=== PATIENT | female | born 1990 | race Caucasian/White ===

== ENCOUNTER 2020-01-25 06:48 | Inpatient (IN) | payer MEDICARE, OTHER ==
[2020-01-25] VITALS (14 sets, daily range): BP systolic 81–112; BP diastolic 48–61
[2020-01-25] MEDS ORDERED: NS 1,000 ML IV SCH (08:03)
[2020-01-25] MEDS ORDERED: ATOR1TAB19 PO (08:32)
[2020-01-25] MEDS ORDERED: ESCI10TA2 PO (08:32)
[2020-01-25] MEDS ORDERED: LISI2.5T2 PO (08:32)
[2020-01-25] MEDS ORDERED: LEVO75TA4 PO (08:32)
[2020-01-25 08:39] LABS: BASO % 0.2 % (0.0-1.0); HEMATOCRIT 36.2 % (36.0-47.0); HEMOGLOBIN 11.8 g/dl (12.0-15.5); LYMPH # 1.3 10^3/uL (1.5-5.0); LYMPH % 6.4 % (24.0-44.0); MEAN CORPUSCULAR HEMOGLOBIN 30.6 pg (27.0-33.0); MEAN CORPUSCULAR HGB CONC 32.6 g/dl (32.0-36.5); MEAN CORPUSCULAR VOLUME 93.8 fl (80.0-96.0); MONO # 0.6 10^3/uL (0.0-0.8); MONO % 3.3 % (0.0-5.0); NEUTROPHILS # 17.6 10^3/uL (1.5-8.5); NEUTROPHILS % 89.3 % (36.0-66.0); PLATELET COUNT, AUTOMATED 333 10^3/uL (150-450); RED BLOOD COUNT 3.86 10^6/uL (4.00-5.40); WHITE BLOOD COUNT 19.7 10^3/uL (4.0-10.0)
[2020-01-25] MEDS: INSULIN IV RATE CHANGE DOCUMENTATION ML/HR XX SCH ×5 (08:49→14:19)
[2020-01-25] MEDS ORDERED: INSULIN HUMAN REGULAR 100 UNITS in NS 99 ML IV SCH ×4 (09:00)
[2020-01-25] MEDS ORDERED: GLUCOSE 4GM CHEW TABLET PO PRN ×2 (09:00→13:45)
[2020-01-25] MEDS ORDERED: DEXTROSE 50% 50 ML SYRINGE IV PRN ×2 (09:00→13:45)
[2020-01-25] MEDS ORDERED: GLUCAGON INJ 1MG VIAL SC PRN ×2 (09:00→13:45)
[2020-01-25] MEDS ORDERED: PANTOPRAZOLE 40MG VIAL (C9113 PER 1) IV SCH (09:00)
[2020-01-25 09:08] LABS: CALCIUM LEVEL 7.9 MG/DL (8.5-10.1); CREATININE FOR GFR 1.18 MG/DL (0.55-1.30); GLOMERULAR FILTRATION RATE 56.9 (>60); POTASSIUM SERUM 3.6 MEQ/L (3.5-5.1)
[2020-01-25] MEDS ORDERED: HUMA100I5 SQ (09:08)
[2020-01-25] MEDS ORDERED: BASA100I SC (09:08)
[2020-01-25] MEDS ORDERED: BASA100I SQ (09:08)
[2020-01-25] MEDS ORDERED: ACET-907 PO (09:09)
[2020-01-25 09:12] LABS: ABG BASE EXCESS -10.8 (-2.0-2.0); ABG O2 SATURATION 98.4 % (95.0-99.0); ABG PARTIAL PRESSURE CO2 24.1 mmHg (35.0-45.0); ABG PARTIAL PRESSURE O2 113.8 mmHg (75.0-100.0); ABG STANDARD HCO3 15.9 MEQ/L (22.0-26.0); ABG TOTAL CO2 13.8 MEQ/L (22.0-29.0); ABG pH (ARTERIAL) 7.351 UNITS (7.350-7.450)
--- NOTE | 2020-01-25 09:58 | HPEPDOC ---
General Date of Admission Jan 25, 2020 at 07:59 Date of Service: Jan 25, 2020 Chief Complaint The patient is a 29-year-old female admitted with a reason for visit of DKA. History of Present Illness 29 year old female PMHx IDDM presents with nausea and vomiting. History obtained from patients chart, symptoms started two weeks ago with vomiting with blood in emesis, she started taking an OTC medication for reflux which helped to improve her symptoms. 1 day prior to admission the nausea and vomiting began again. Initially presenting to [facility] where patient found to be in DKA, subsequently transferred to [facility] for inpatient management, no further episodes of vomiting noted. Currently being managed in MICU, insulin drip/IVF. Home Medications Scheduled Atorvastatin Calcium (Atorvastatin Calcium) 10 Mg Tablet, 10 MG PO DAILY, (Reported) Escitalopram Oxalate (Escitalopram Oxalate) 10 Mg Tablet, 10 MG PO DAILY, (Reported) Insulin Glargine,Hum.rec.anlog (Basaglar Kwikpen U-100) 100 Unit/1 Ml Insuln.pen, 25 UNITS SQ QAM, (Reported) Insulin Glargine,Hum.rec.anlog (Basaglar Kwikpen U-100) 100 Unit/1 Ml Insuln.pen, 5 UNIT SC QHS, (Reported) Insulin Lispro (Humalog Kwikpen U-100) 100 Unit/1 Ml Insuln.pen, 1 DOSE SQ AC, (Reported) PER SLIDING SCALE Levothyroxine Sodium (Levothyroxine Sodium) 75 Mcg Tablet, 75 MG PO DAILY, (Reported) Pantoprazole Sodium (Pantoprazole Sodium) 40 Mg Tablet.dr, 40 MG PO DAILY Sucralfate (Carafate) 1 Gm Tablet, 1 TAB PO QID Scheduled PRN Acetaminophen (Tylenol) 325 Mg Tablet, 650 MG PO TID PRN for PAIN / FEVER, (Reported) Allergies Coded Allergies: No Known Allergies (Unverified , 01/25/20) Past Medical History Medical History IDDM A-FIB/CHADSVASC A-FIB History Current/History of A-Fib/PAF?: No Review of Systems Constitutional: Reports: Weakness, Fatigue Eyes: Denies: Pain, Vision change ENT: Reports: Sore Throat; Denies: Head Aches, Ear Pain, Dysphagia Skin: Denies: Rash, Lesions, Breakdown Pulmonary: Denies: Dyspnea, Cough Cardiovascular: Denies: Chest Pain, Palpitations, Orthopnea, Paroxysmal Noc. Dyspnea, Lt Headedness Gastrointestinal: Reports: Nausea; Denies: Vomiting, Abdominal Pain, Diarrhea Genitourinary: Denies: Dysuria, Frequency, Incontinence, Retention Hematologic: Denies: Bruising, Bleeding Excessively Musculoskeletal: Denies: Neck Pain, Back Pain, Joint Pain, Muscle Pain, Spasms Neurological: Denies: Weakness, Numbness, Change in speech, Confusion Psych: Reports: Mood Normal; Denies: Depression, Memory Issues Physical Examination General Exam: Positive: Alert, No Acute Distress; Negative: Cooperative, Mild Distress, Moderate Distress, Severe Distress, Other Eye Exam: Positive: PERRLA, Conjunctiva & lids normal, EOMI; Negative: Sclera icteric, Ptosis, Other Eye Symptoms ENT Exam: Positive: Atraumatic, Mucous membr. moist/pink, Pharynx Normal; Negative: Tongue Midline, Pharyngeal Edema, Nares Patent, Tympanic Membranes Normal, Ext Auditory Canal Nml, Pinna Normal, Other ENT Neck Exam: Positive: Supple; Negative: JVD, thyromegaly, +2 carotid pulse wo bruit, Lymphadenopathy, Other Chest Exam: Positive: Clear to auscultation, Normal air movement; Negative: Rales, Rhonchi, Wheezing, Diminished, Other Heart Exam: Positive: Rate Normal, Regular Rhythm, Normal S1, Normal S2; Negative: Tachycardic, Bradycardic, Irregular Rhythm, Gallops, Murmurs, Rubs, Other Telemetry: Positive: No significant arrhythmia; Negative: Sinus, Atrial fibrillation, Tachycardia, Bradycardia, AV Block, Pause, SV Tach, PVCs, PACs, Asystole, Other Telemetry: Abdomen Exam: Positive: Normal bowel sounds, Soft, Tenderness (epigastric); Negative: BS Hyperactive, BS Hypoactive, Hepatospenomegaly, Mass, Hernia, Other Extremity Exam: Positive: Normal pulses; Negative: Clubbing, Cyanosis, Edema, Tenderness, Swelling, Other Skin Exam: Positive: Nl turgor and temperature; Negative: Rash, Breakdown, Lesion, Pruritus, Other skin issue Neuro Exam: Positive: Normal Gait, Normal Speech, Cranial Nerves 3-12 NL, Reflexes 2+; Negative: Strength at 5/5 X4 ext, Normal Tone, Sensation Intact, Other Psych Exam: Positive: Mental status NL, Mood NL, Oriented x 3; Negative: Anxiety, Memory Intact, Other Vital Signs reviewed in chart Laboratory Data Labs 24H Laboratory Tests 2 01/25/20 08:28: Anion Gap 15, Glomerular Filtration Rate 56.9L, Calcium Level 7.9L 01/25/20 08:29: Immature Granulocyte % (Auto) 0.8, Neutrophils (%) (Auto) 89.3H, Lymphocytes (%) (Auto) 6.4L, Monocytes (%) (Auto) 3.3, Eosinophils (%) (Auto) 0.0, Basophils (%) (Auto) 0.2, Neutrophils # (Auto) 17.6H, Lymphocytes # (Auto) 1.3L, Monocytes # (Auto) 0.6, Eosinophils # (Auto) 0.0, Basophils # (Auto) 0.0, Nucleated Red Blood Cells % (auto) 0.0 01/25/20 09:01: Blood Gas Bicarbonate Standard 15.9L, Arterial Blood pH 7.351, Arterial Blood Partial Pressure CO2 24.1L, Arterial Blood Partial Pressure O2 113.8H, Arterial Blood Total CO2 13.8L, Arterial Blood HCO3 13.0L, Arterial Blood Base Excess - 10.8L, Arterial Blood Oxygen Saturation 98.4 01/25/20 09:13: Bedside Glucose (Misc Panel) 155H CBC/BMP Laboratory Tests 01/25/20 08:28 01/25/20 08:29 Assessment/Plan 1. DKA - admit to MICU. - insulin drip, IVF. - serial BMP, monitor Mg/PO4, supplement as needed. - NPO. 2. bloody vomitus - monitor Hgb, stable for now. - no further episodes here, check stool OB. - PPI, monitor LFT's. - CT with severe hepatic steatosis, check US. - consultation to GI. Plan / VTE VTE Prophylaxis Ordered?: Yes NATALIA EDMOND MD Jan 25, 2020 09:58
[2020-01-25] MEDS ORDERED: INSULIN IV RATE CHANGE DOCUMENTATION ML/HR XX SCH (10:00)
[2020-01-25] MEDS ORDERED: ONDANSETRON 4MG/2ML VIAL IV PRN (10:00)
[2020-01-25] MEDS: CEPACOL LOZENGE PO PRN ×3 (10:26→17:10)
[2020-01-25 10:45] LABS: BLOOD UREA NITROGEN 25 MG/DL (7-18); CALCIUM LEVEL 8.1 MG/DL (8.5-10.1); CARBON DIOXIDE LEVEL 19 MEQ/L (21-32); CHLORIDE LEVEL 115 MEQ/L (98-107); CREATININE FOR GFR 1.09 MG/DL (0.55-1.30); GLOMERULAR FILTRATION RATE > 60.0 (>60); GLUCOSE, FASTING 124 MG/DL (70-100); MAGNESIUM LEVEL 1.9 MG/DL (1.8-2.4); PHOSPHORUS LEVEL 1.1 MG/DL (2.5-4.9); POTASSIUM SERUM 3.6 MEQ/L (3.5-5.1); SODIUM LEVEL 143 MEQ/L (136-145)
[2020-01-25] MEDS ORDERED: SODIUM PHOSPHATE INJ 20 MMOL in D5W 250 ML IV ONE (11:30)
[2020-01-25] MEDS: PANTOPRAZOLE 40MG TAB (PROTONIX) PO SCH (11:43)
[2020-01-25] MEDS: cefTRIAXone SOD 1 GM in D5W MINI-BAG PLUS 50 ML IV SCH (11:44)
[2020-01-25] MEDS ORDERED: D5W/0.45% SODIUM CHLORIDE 1,000 ML IV SCH (11:45)
[2020-01-25] MEDS ORDERED: POTASSIUM CHLORIDE 10 MEQ SR TABLET PO ONE (12:00)
[2020-01-25] MEDS ORDERED: POTASSIUM PHOSPHATE INJ 20 MMOL in D5W 250 ML IV ONE (12:00)
[2020-01-25 12:57] LABS: BLOOD UREA NITROGEN 24 MG/DL (7-18); CALCIUM LEVEL 8.7 MG/DL (8.5-10.1); CARBON DIOXIDE LEVEL 17 MEQ/L (21-32); CHLORIDE LEVEL 112 MEQ/L (98-107); CREATININE FOR GFR 1.08 MG/DL (0.55-1.30); GLOMERULAR FILTRATION RATE > 60.0 (>60); GLUCOSE, FASTING 153 MG/DL (70-100); MAGNESIUM LEVEL 2.3 MG/DL (1.8-2.4); PHOSPHORUS LEVEL 1.9 MG/DL (2.5-4.9); POTASSIUM SERUM 4.4 MEQ/L (3.5-5.1); SODIUM LEVEL 138 MEQ/L (136-145)
[2020-01-25] MEDS: LEVEMIR (INSULIN DETEMIR) 1 UNITS/0.01ML SC SCH (14:08)
[2020-01-25 17:08] LABS: BLOOD UREA NITROGEN 22 MG/DL (7-18); CALCIUM LEVEL 7.7 MG/DL (8.5-10.1); CARBON DIOXIDE LEVEL 18 MEQ/L (21-32); CHLORIDE LEVEL 107 MEQ/L (98-107); CREATININE FOR GFR 0.99 MG/DL (0.55-1.30); GLOMERULAR FILTRATION RATE > 60.0 (>60); GLUCOSE, FASTING 331 MG/DL (70-100); PHOSPHORUS LEVEL 3.1 MG/DL (2.5-4.9); POTASSIUM SERUM 4.4 MEQ/L (3.5-5.1); SODIUM LEVEL 135 MEQ/L (136-145)
[2020-01-25] MEDS: HumaLOG INSULIN (NovoLOG) PER UNIT SC SCH (17:10)
[2020-01-25] MEDS: ACETAMINOPHEN 325 MG/10.15 ML UDC PO PRN (17:39)
[2020-01-25] MEDS ORDERED: HumaLOG INSULIN (NovoLOG) PER UNIT SC SCH ×2 (18:00→21:00)
[2020-01-25] MEDS: NS 1,000 ML IV SCH ×2 (20:45→21:37)
[2020-01-26] VITALS (10 sets, daily range): BP systolic 85–117; BP diastolic 49–79
[2020-01-26] MEDS: CEPACOL LOZENGE PO PRN ×5 (00:22→14:28)
[2020-01-26] MEDS: ACETAMINOPHEN 325 MG/10.15 ML UDC PO PRN ×3 (00:22→14:28)
[2020-01-26] MEDS: NS 1,000 ML IV SCH ×2 (04:36→13:07)
[2020-01-26 04:49] LABS: HEMATOCRIT 33.3 % (36.0-47.0); HEMOGLOBIN 11.1 g/dl (12.0-15.5); MEAN CORPUSCULAR HGB CONC 33.3 g/dl (32.0-36.5); PLATELET COUNT, AUTOMATED 281 10^3/uL (150-450); RED BLOOD COUNT 3.58 10^6/uL (4.00-5.40); WHITE BLOOD COUNT 19.4 10^3/uL (4.0-10.0)
[2020-01-26 05:14] LABS: ACETONE/KETONE 3.18 MG/DL (<2.81); BLOOD UREA NITROGEN 9 MG/DL (7-18); CALCIUM LEVEL 8.2 MG/DL (8.5-10.1); CARBON DIOXIDE LEVEL 23 MEQ/L (21-32); CHLORIDE LEVEL 116 MEQ/L (98-107); CREATININE FOR GFR 0.77 MG/DL (0.55-1.30); GLOMERULAR FILTRATION RATE > 60.0 (>60); GLUCOSE, FASTING 138 MG/DL (70-100); PHOSPHORUS LEVEL 2.1 MG/DL (2.5-4.9); POTASSIUM SERUM 3.4 MEQ/L (3.5-5.1); SODIUM LEVEL 142 MEQ/L (136-145)
[2020-01-26] MEDS ORDERED: POTASSIUM CHLORIDE 10 MEQ SR TABLET PO ONE (07:15)
[2020-01-26 07:49] LABS: ALBUMIN 2.8 GM/DL (3.2-5.2); ALT/SGPT 21 U/L (12-78); BILIRUBIN,DIRECT 0.1 MG/DL (0.0-0.2); BILIRUBIN,TOTAL 0.7 MG/DL (0.2-1.0); TOTAL PROTEIN 5.5 GM/DL (6.4-8.2)
--- NOTE | 2020-01-26 08:41 | REP ---
RIGHT QUADRANT SONOGRAPHY: HISTORY: Hepatic steatosis. No comparison imaging. FINDINGS: Scanning through right upper quadrant of the abdomen demonstrates minimal sludge in a normal sized thin-walled gallbladder without evidence of stone or polyp. Common bile duct is normal measuring 0.5 cm in greatest diameter. No focal liver lesion is seen. There is an increased echogenicity in the liver parenchyma. An area of hypoechoic texture is seen adjacent to the ligamentum teres consistent with an area of fat sparing. There is no evidence of ascites or right renal abnormality. The right kidney measures 12.1 x 4.9 x 6.0 cm. IMPRESSION: Evidence of fatty infiltration of the liver with an area of fat sparing near the ligamentum teres. Minimal sludge in the gallbladder. Otherwise negative. Electronically Signed by Jace William MD 01/26/2020 10:37 A
[2020-01-26] MEDS: HumaLOG INSULIN (NovoLOG) PER UNIT SC SCH ×2 (09:05→12:42)
[2020-01-26] MEDS: PANTOPRAZOLE 40MG TAB (PROTONIX) PO SCH (09:43)
[2020-01-26] MEDS: LEVEMIR (INSULIN DETEMIR) 1 UNITS/0.01ML SC SCH (09:43)
[2020-01-26] MEDS: cefTRIAXone SOD 1 GM in D5W MINI-BAG PLUS 50 ML IV SCH (11:25)
[2020-01-26 12:14] LABS: BASO % 0.3 % (0.0-1.0); EOS # 0.1 10^3/uL (0.0-0.5); EOS % 0.3 % (0.0-3.0); HEMATOCRIT 29.1 % (36.0-47.0); HEMOGLOBIN 9.8 g/dl (12.0-15.5); LYMPH # 2.2 10^3/uL (1.5-5.0); LYMPH % 14.7 % (24.0-44.0); MEAN CORPUSCULAR HEMOGLOBIN 31.1 pg (27.0-33.0); MEAN CORPUSCULAR HGB CONC 33.7 g/dl (32.0-36.5); MEAN CORPUSCULAR VOLUME 92.4 fl (80.0-96.0); MONO # 0.8 10^3/uL (0.0-0.8); MONO % 5.1 % (0.0-5.0); NEUTROPHILS # 11.9 10^3/uL (1.5-8.5); NEUTROPHILS % 79.1 % (36.0-66.0); PLATELET COUNT, AUTOMATED 237 10^3/uL (150-450); RED BLOOD COUNT 3.15 10^6/uL (4.00-5.40)
[2020-01-26 12:39] LABS: MONO REFLEX EBV VCA IgM NEGATIVE (NEGATIVE)
[2020-01-26 12:45] LABS: ERYTHROCYTE SEDIMENTATION RATE 11 mm/hr (0-20)
[2020-01-26 14:20] LABS: APPEARANCE, URINE CLEAR (CLEAR); BACTERIA, URINE AUTO 2+ (NEGATIVE); BILIRUBIN, URINE AUTO NEGATIVE (NEGATIVE); BLOOD, URINE BLOOD NEGATIVE (NEGATIVE); COLOR, URINE STRAW (YELLOW); GLUCOSE, URINE (UA) AUTO 3+ mg/dL (NEGATIVE); KETONE, URINE AUTO NEGATIVE (NEGATIVE); LEUKOCYTE ESTERASE, URINE AUTO NEGATIVE (NEGATIVE); NITRITE, URINE AUTO NEGATIVE (NEGATIVE); PROTEIN, URINE AUTO NEGATIVE (NEGATIVE); RBC, URINE AUTO 2 /HPF (0-3); SPECIFIC GRAVITY URINE AUTO 1.012 (1.002-1.035); SQUAMOUS EPITHELIAL CELL UR AU 2 /HPF (0-6); UROBILINOGEN, URINE AUTO 0.2 mg/dL (0.0-2.0); WBC, URINE AUTO 2 /HPF (0-3)
[2020-01-26] MEDS ORDERED: CARA1TAB6 PO (14:24)
[2020-01-26] MEDS ORDERED: PANT40TA3 PO (14:24)
[2020-01-26 14:50] LABS: C REACTIVE PROTEIN QUANTITATIV 1.51 MG/DL (0.00-0.30)
--- NOTE | 2020-01-27 18:48 | DS.PDOC ---
Discharge Summary General Date of Admission Jan 25, 2020 at 07:59 Date of Discharge 01/26/20 Attending Physician: ERIKA EDMOND MD Discharge Summary PROCEDURES PERFORMED DURING STAY: None. DISCHARGE DIAGNOSES: 1. DKA likely 2/2 proceeding enteritis 2. Hepatic steatosis 3. Loss of voice likely 2/2 severe prolonged vomiting versus pending EBV 4. Dyslipidemia 5. Depression 6. Hypothyroidism 7. Hypokalemia supplemented HISTORY OF PRESENT ILLNESS: This is a 29-year-old female directly admitted from [facility] after she was found to be in DKA. She reports 2-3 days of ongoing nausea, vomiting, abdominal discomfort, reflux leading up to her visit to the ER. States she initially was vomiting of food and liquids, then bile, then scant amount of blood. She was started on insulin drip and IV fluids per DKA protocol and admitted to ICU. HOSPITAL COURSE: Acidosis resolved and pt tolerated po intake, bridged off drip to basal insulin with coverage. Was noted on imaging in [place] to have fatty liver. Ultrasound done confirms this. Discussed with pt in depth and emphasized importance of outpatient follow up to care for this and EGD also for her red- flag symptoms of hemoptysis and worsening reflux that might be contributing to her voice loss. Pt relayed understanding and had no transaminitis. H&H stable and no blood loss for entire stay in [facility]. She will be discharged home with gastroprotective meds PPI & carafate. During her stay, she was noted to be borderline hypotensive, asymptomatic. Lisinopril was stopped on dc. Patient is verbalizing the understanding of following up with gastroenterology for necessary EGD. Will have the patient follow-up with primary care provider for follow-up of liver profile. DISCHARGE MEDICATIONS: Please see below. ALLERGIES: Please see below. PHYSICAL EXAMINATION ON DISCHARGE: VITAL SIGNS: Please see below. GENERAL: NAD, A&Ox3 HEENT: nc, at, EOMI, no oral lesions. Erythematous posterior pharynx. Decreased vocal expression, whispering. NECK: supple, no JVD No adenopathy CARDIOVASCULAR EXAMINATION: RRR, normal S1 S2 RESPIRATORY EXAMINATION: CTAB, no w/r/r ABDOMINAL EXAMINATION: soft, nt/nd, normoactive bowel sounds. Benign EXTREMITIES: 2+ pulses b/l, no cyanosis or edema SKIN: no visible rash or lesions, warm, dry NEUROLOGICAL EXAMINATION: no focal deficits, able to move all extremities LABORATORY DATA: Please see below. IMAGING: * Liver ultrasound: Evidence of fatty infiltration of the liver with an area of fat sparing near the ligamentum teres. Minimal sludge in the gallbladder. Otherwise negative. PROGNOSIS: good ACTIVITY: As tolerated. DIET: consistent carb DISPOSITION: home DISCHARGE INSTRUCTIONS: 1. Follow-up with PCP within a week for repeat lab work 2. Follow up with GI for likely EGD 3. Return to ER for emergency DISCHARGE CONDITION: Stable. TIME SPENT ON DISCHARGE: Greater than 35 minutes. Vital Signs/I&Os Vital Signs Date Time Temp Pulse Resp B/P (MAP) Pulse Ox O2 Delivery O2 Flow Rate FiO2 01/26/20 14:14 97.5 99 16 117/79 (92) 100 Room Air I&O- Last 24 Hours up to 6 AM 01/27/20 06:00 Intake Total 2055 ml Output Total 400 ml Balance 1655 ml Discharge Medications Scheduled Atorvastatin Calcium (Atorvastatin Calcium) 10 Mg Tablet, 10 MG PO DAILY, (Reported) Escitalopram Oxalate (Escitalopram Oxalate) 10 Mg Tablet, 10 MG PO DAILY, (Reported) Insulin Glargine,Hum.rec.anlog (Basaglar Kwikpen U-100) 100 Unit/1 Ml Insuln.pen, 25 UNITS SQ QAM, (Reported) Insulin Glargine,Hum.rec.anlog (Basaglar Kwikpen U-100) 100 Unit/1 Ml Insuln.pen, 5 UNIT SC QHS, (Reported) Insulin Lispro (Humalog Kwikpen U-100) 100 Unit/1 Ml Insuln.pen, 1 DOSE SQ AC, (Reported) PER SLIDING SCALE Levothyroxine Sodium (Levothyroxine Sodium) 75 Mcg Tablet, 75 MG PO DAILY, (Reported) Pantoprazole Sodium (Pantoprazole Sodium) 40 Mg Tablet.dr, 40 MG PO DAILY Sucralfate (Carafate) 1 Gm Tablet, 1 TAB PO QID Scheduled PRN Acetaminophen (Tylenol) 325 Mg Tablet, 650 MG PO TID PRN for PAIN / FEVER, (Repo rted) Allergies Coded Allergies: No Known Allergies (Unverified , 01/25/20) GME ATTESTATION GME ATTESTATION My faculty preceptor for this patient encounter was physically present during the encounter and was fully available. All aspects of the patient interview, examination, medical decision making process, and medical care plan development were reviewed and approved by the faculty preceptor. The faculty preceptor is aware and concurs with the plan as stated in the body of this note and will attest to such by his/her cosignature. ATTENDING NOTE I, Erika Edmond, have independently examined this patient and performed my own physical exam, as well as reviewed the documentation and edited where necessary. I have discussed in detail with the resident / student the findings and plan of treatment as documented by the resident / student and edited their note. I agree with their findings and treatment plan and have edited their documentation. I will continue to follow the patient during this hospital stay. Time spent on discharge 35 minutes PATRICIA SHIN DO Jan 27, 2020 18:48 ERIKA EDMOND MD Jan 28, 2020 10:31
[2020-02-13] MEDS ORDERED: LISI2.5T2 PO (08:55)
== END 2020-01-26 15:45 | disposition home or self-care (01) | DRG 420 ==
LOC: M ICU 07:59 → M MSPAV 01-26 14:20
PROVIDERS: ADMIT Internal Medicine; ATTEND Internal Medicine
DX: E10.10 Type 1 diabetes mellitus with ketoacidosis without coma (principal); K76.0 Fatty (change of) liver, not elsewhere classified; E78.5 Hyperlipidemia, unspecified; F32.9 Major depressive disorder, single episode, unspecified; E03.9 Hypothyroidism, unspecified; E87.6 Hypokalemia; Z79.4 Long term (current) use of insulin; Z79.899 Other long term (current) drug therapy; F17.210 Nicotine dependence, cigarettes, uncomplicated; K29.70 Gastritis, unspecified, without bleeding; Z91.14 Patient's other noncompliance with medication regimen; Z91.11 Patient's noncompliance with dietary regimen

== ENCOUNTER 2020-02-13 07:33 | Inpatient (IN) | payer OTHER ==
[2020-02-13] VITALS (9 sets, daily range): BP systolic 99–132; BP diastolic 54–72
[~2020-02-13] VITALS: Ht 157.5 cm; Wt 57.5 kg
[~2020-02-13 07:33] MED LIST: ACET-907 PO; ATOR1TAB19 PO; BASA100I SC; BASA100I SQ; CARA1TAB6 PO; ESCI10TA2 PO; HUMA100I5 SQ; LEVO75TA4 PO; LISI-1046 PO; PANT40TA3 PO
[2020-02-13 08:07] LABS: VENOUS BASE EXCESS -16.1 (-2.0-2.0); VENOUS HCO3 11.2 MEQ/L (23.0-27.0); VENOUS O2 SATURATION 76.7 % (60.0-80.0); VENOUS PARTIAL PRESSURE CO2 31.9 mmHg (38.0-50.0); VENOUS PARTIAL PRESSURE O2 46.4 mmHg (30.0-50.0); VENOUS PH 7.165 UNITS (7.330-7.430); VENOUS STANDARD HCO3 12.1 MEQ/L; VENOUS TOTAL CO2 12.2 MEQ/L (24.0-28.0)
[2020-02-13 08:10] LABS: BASO % 0.3 % (0.0-1.0); HEMATOCRIT 43.4 % (36.0-47.0); HEMOGLOBIN 13.7 g/dl (12.0-15.5); LYMPH # 0.8 10^3/uL (1.5-5.0); LYMPH % 5.5 % (24.0-44.0); MEAN CORPUSCULAR HEMOGLOBIN 29.9 pg (27.0-33.0); MEAN CORPUSCULAR HGB CONC 31.6 g/dl (32.0-36.5); MEAN CORPUSCULAR VOLUME 94.8 fl (80.0-96.0); MONO # 0.3 10^3/uL (0.0-0.8); MONO % 1.7 % (0.0-5.0); NEUTROPHILS # 13.9 10^3/uL (1.5-8.5); NEUTROPHILS % 91.6 % (36.0-66.0); PLATELET COUNT, AUTOMATED 460 10^3/uL (150-450); RED BLOOD COUNT 4.58 10^6/uL (4.00-5.40); WHITE BLOOD COUNT 15.1 10^3/uL (4.0-10.0)
[2020-02-13] MEDS: NS 1,000 ML IV SCH ×4 (08:13→11:21)
[2020-02-13] MEDS ORDERED: METOCLOPRAMIDE INJ 10MG/2ML VIAL (J2765 PER 1) IV ONE (08:15)
[2020-02-13] MEDS ORDERED: INSULIN HUMAN REGULAR 100 UNITS in NS 99 ML IV SCH (08:34)
[2020-02-13 08:40] LABS: BLOOD UREA NITROGEN 21 MG/DL (7-18); CALCIUM LEVEL 8.9 MG/DL (8.5-10.1); CARBON DIOXIDE LEVEL 11 MEQ/L (21-32); CHLORIDE LEVEL 104 MEQ/L (98-107); CK-MB VALUE MASS < 1.0 NG/ML (<3.6); CPK CREATINE PHOSPHOKINASE 29 U/L (26-192); CREATININE FOR GFR 1.18 MG/DL (0.55-1.30); ETHYL ALCOHOL (ETHANOL) < 0.003 % (0.000-0.010); GLOMERULAR FILTRATION RATE 56.9 (>60); GLUCOSE, FASTING 430 MG/DL (70-100); MB/CK RELATIVE INDEX 3.45 (< OR =4); POTASSIUM SERUM 4.8 MEQ/L (3.5-5.1); SODIUM LEVEL 137 MEQ/L (136-145); TROPONIN I < 0.02 NG/ML (< 0.10)
[2020-02-13 08:50] LABS: OSMOLALITY SERUM 321 MOSM/KG (275-295)
[2020-02-13] MEDS ORDERED: CARA1TAB6 PO (08:55)
[2020-02-13] MEDS ORDERED: LISI-1046 PO (08:55)
[2020-02-13 09:24] LABS: AMPHETAMINES LEVEL URINE NEGATIVE (NEGATIVE); BARBITURATES URINE NEGATIVE (NEGATIVE); BENZODIAZEPINES URINE NEGATIVE (NEGATIVE); CANNABINOIDS URINE POSITIVE (NEGATIVE); COCAINE METABOLITE URINE NEGATIVE (NEGATIVE); METHADONE URINE NEGATIVE (NEGATIVE); OPIATES URINE NEGATIVE (NEGATIVE); PHENCYCLIDINE URINE NEGATIVE (NEGATIVE)
[2020-02-13] MEDS ORDERED: INSULIN IV RATE CHANGE DOCUMENTATION ML/HR XX SCH (09:45)
[2020-02-13] MEDS ORDERED: GI COCKTAIL 50ML BTL(HYOSCYAMINE/MAALOX/LIDOCAINE VISCOUS)(1:3:1) PO PRN (09:45)
[2020-02-13] MEDS ORDERED: MAGIC MOUTHWASH SUSPENSION BTL SSP PRN (09:45)
[2020-02-13] MEDS ORDERED: ONDANSETRON 4MG/2ML VIAL IV PRN (10:00)
[2020-02-13] MEDS ORDERED: KCL 20MEQ in NS 1000ML 1,000 ML IV SCH (10:00)
[2020-02-13 10:07] LABS: VENOUS BASE EXCESS -19.9 (-2.0-2.0); VENOUS HCO3 8.2 MEQ/L (23.0-27.0); VENOUS O2 SATURATION 85.6 % (60.0-80.0); VENOUS PARTIAL PRESSURE CO2 26.7 mmHg (38.0-50.0); VENOUS PARTIAL PRESSURE O2 61.4 mmHg (30.0-50.0); VENOUS PH 7.105 UNITS (7.330-7.430); VENOUS STANDARD HCO3 9.9 MEQ/L
[2020-02-13] MEDS: INSULIN HUMAN REGULAR 100 UNITS in NS 99 ML IV SCH (10:21)
[2020-02-13] MEDS: INSULIN IV RATE CHANGE DOCUMENTATION ML/HR XX SCH ×11 (10:22→23:18)
[2020-02-13] MEDS: PANTOPRAZOLE 40MG VIAL (C9113 PER 1) IV SCH (10:27)
[2020-02-13 10:29] LABS: BLOOD UREA NITROGEN 20 MG/DL (7-18); CALCIUM LEVEL 8.3 MG/DL (8.5-10.1); CARBON DIOXIDE LEVEL 9 MEQ/L (21-32); CHLORIDE LEVEL 108 MEQ/L (98-107); CREATININE FOR GFR 1.01 MG/DL (0.55-1.30); GLOMERULAR FILTRATION RATE > 60.0 (>60); GLUCOSE, FASTING 396 MG/DL (70-100); POTASSIUM SERUM 4.8 MEQ/L (3.5-5.1); SODIUM LEVEL 137 MEQ/L (136-145)
--- NOTE | 2020-02-13 10:52 | HPEPDOC ---
[facility] Medical History & Physical Date of Admission Feb 13, 2020 Date of Service: Feb 13, 2020 Attending Physician: KATHY CRUZ MD History and Physical PRIMARY CARE PROVIDER: Harriett Shah ATTENDING: Dr. Kathy Cruz CHIEF COMPLAINT: Nausea/vomiting HISTORY OF PRESENT ILLNESS: Patient is a 29 year old female presenting with chief complaint of nausea and non-bloody bilious and non-bilious vomiting for the past 2 days. She states she has been unable to hold down food and feels like she was in her usual state of health prior to this happening. She denies medication non-compliance, headache, dizziness, fevers, chills, chest pain, difficulty breathing, hemoptysis, dysuria, diarrhea. Admits to occasional cough productive of green sputum, epigastric abdominal pain, ongoing nausea, dry mouth. PAST MEDICAL HISTORY: Type 1 diabetes Hypothyroidism History of hematemesis with US showing fatty infiltration PAST SURGICAL HISTORY: none SOCIAL HISTORY: admits to occasional alcohol use, states she had 3 sugar free Smirnoffs last weekend, 5 cigarettes per day, admits to occasional 3x/week marijuana use with pipe, denies any heroin, cocaine, or PCP use. Denies recent sick contacts. FAMILY HISTORY: ALLERGIES: Please see below. REVIEW OF SYSTEMS: GENERAL: Denies fevers, chills, recent unexpected weight change, night sweats, hemoptysis HEENT: Denies headache, dizziness, vision changes, hearing loss, admits to sore throat from emesis CARDIOVASCULAR: Denies chest pain, palpitations, orthopnea RESPIRATORY: Denies shortness of breath, wheezing, admits to intermittent cough productive of green sputum. GASTROINTESTINAL: denies constipation, diarrhea, bloody stool. Admits to nausea, vomiting, abdominal pain, GENITOURINARY: Denies dysuria,urinary urgency, hematuria. MUSCULOSKELETAL: Denies muscle/joint pain, weakness, stiffness NEUROLOGICAL: Denies any numbness/tingling, focal weakness, or syncope HOME MEDICATIONS: Please see below. PHYSICAL EXAMINATION: Vitals: (see below) General: Pale appearing female who appears stated age in mild distress, sitting up in bed. HEENT: Normocephalic, atraumatic. EOMI. No scleral icterus. Dry mucous membranes. No pharyngeal erythema or uvular deviation. Neck: No JVD, lymphadenopathy, or thyromegaly. Cardiac: RRR, Normal S1 and S2, No murmurs, gallops, rubs. Pulm: Clear to auscultation b/l. Symmetric thorax. No wheezing, crackles, rhonchi Abd: Bowel Sounds present. Abdomen is soft, minimally tender to palpation, non- distended. No guarding, rebound tenderness, or rigidity. Ext: No edema or cyanosis Neuro: No focal neuro deficits. LABORATORY DATA: See below. IMAGIN02/13/2020 CXR: No acute cardiopulmonary process. MICROBIOLOGY: Please see below. ASSESSMENT/PLAN: #. DKA secondary to unknown cause -ED provider suspecting possible medication non-compliance. UA, CXR negative. If infectious cause, then it is likely a viral gastroenteritis however her symptoms are consistent with typical DKA. - Insulin drip, IVF w/ KCL replacement, will wait for bicarb to get to at least 20 before beginning to bridge patient. - Zofran for nausea, will give magic mouth wash for mouth pain. - Patient is on 12-15 units of insulin with meals typically, with 5 units of levemir QHS, 25 units QAM #. Type 1 DM - Checking MITCH-65, islet cell antibodies, A1C as patient has relatively recent diagnosis with no supporting diagnosis for T1DM. #. Hypothyroidism -Continue home synthroid. #. Holding remain PO medications, ok to resume when patient is able to resume consistent carb diet. -DVT prophy: heparin, teds/seqs Vital Signs Vital Signs Date Time Temp Pulse Resp B/P (MAP) Pulse Ox O2 Delivery O2 Flow Rate FiO2 02/13/20 09:49 97.7 114 18 132/78 (96) 99 Room Air Laboratory Data Labs 24H Laboratory Tests 2 02/13/20 07:52: Bedside Glucose (Misc Panel) 439H 02/13/20 07:58: POC Beta HCG, Quantitative < 5.0 02/13/20 07:59: Immature Granulocyte % (Auto) 0.9, Neutrophils (%) (Auto) 91.6H, Lymphocytes (%) (Auto) 5.5L, Monocytes (%) (Auto) 1.7, Eosinophils (%) (Auto) 0.0, Basophils (%) (Auto) 0.3, Neutrophils # (Auto) 13.9H, Lymphocytes # (Auto) 0.8L, Monocytes # (Auto) 0.3, Eosinophils # (Auto) 0.0, Basophils # (Auto) 0.0, Nucleated Red Blood Cells % (auto) 0.0, Blood Gas Bicarbonate Standard 12.1, Venous Blood pH 7.165L, Venous Blood Partial Pressure CO2 31.9L, Venous Blood Partial Pressure O2 46.4, Venous Blood Total Carbon Dioxide 12.2L, Venous Blood HCO3 11.2L, Venous Blood Oxygen Saturation 76.7, Venous Blood Base Excess -16.1L, Anion Gap 22H, Glomerular Filtration Rate 56.9L, Osmolality 321H, Calcium Level 8.9, Phosphorus Level 5.0H, Total Creatine Kinase 29, Creatine Kinase MB < 1.0, Creatine Kinase MB Relative Index 3.45, Troponin I < 0.02, Ethyl Alcohol Level < 0.003 02/13/20 08:00: POC Glucose (Misc Panel) 450H, POC Sodium (Misc Panel) 137, POC Potassium (Misc Panel) 4.6, POC Chloride (Misc Panel) 106, POC Total CO2 (Misc Panel) 13.0L, POC Blood Urea Nitrogen (Misc Panel 20, POC Ionized Calcium (Misc Panel) 4.4L, POC Creatinine (Misc Panel) 0.7, POC Hematocrit (Misc Panel) 45.0 02/13/20 08:48: Urine Opiates Screen NEGATIVE, Urine Methadone Screen NEGATIVE, Urine Barbiturates Screen NEGATIVE, Urine Phencyclidine Screen NEGATIVE, Urine Amphetamines Screen NEGATIVE, Urine Benzodiazepines Screen NEGATIVE, Urine Cocaine Metabolite Screen NEGATIVE, Urine Cannabinoids Screen POSITIVEH 02/13/20 09:24: Bedside Glucose (Misc Panel) 422H 02/13/20 09:58: Blood Gas Bicarbonate Standard 9.9, Venous Blood pH 7.105L, Venous Blood Partial Pressure CO2 26.7L, Venous Blood Partial Pressure O2 61.4H, Venous Blood Total Carbon Dioxide 9.0L, Venous Blood HCO3 8.2L, Venous Blood Oxygen Saturation 85.6H, Venous Blood Base Excess -19.9L 02/13/20 10:18: Bedside Glucose (Misc Panel) 312H CBC/BMP Laboratory Tests 02/13/20 07:59 Microbiology Microbiology 02/13/20 Blood Culture, Received Pending Home Medications Scheduled Atorvastatin Calcium (Atorvastatin Calcium) 10 Mg Tablet, 10 MG PO DAILY Escitalopram Oxalate (Escitalopram Oxalate) 10 Mg Tablet, 10 MG PO DAILY Insulin Glargine,Hum.rec.anlog (Basaglar Kwikpen U-100) 100 Unit/1 Ml Insuln.pen, 25 UNITS SQ QAM Insulin Glargine,Hum.rec.anlog (Basaglar Kwikpen U-100) 100 Unit/1 Ml Insuln.pen, 5 UNIT SC QHS Insulin Lispro (Humalog Kwikpen U-100) 100 Unit/1 Ml Insuln.pen, 1 DOSE SQ AC PER SLIDING SCALE Levothyroxine Sodium (Levothyroxine Sodium) 75 Mcg Tablet, 75 MCG PO DAILY Lisinopril (Lisinopril) 2.5 Mg Tablet, 2.5 MG PO DAILY Sucralfate (Carafate) 1 Gm Tablet, 1 GM PO DAILY Scheduled PRN Acetaminophen (Tylenol) 325 Mg Tablet, 650 MG PO TID PRN for PAIN / FEVER Allergies Coded Allergies: No Known Allergies (Unverified , 01/25/20) A-FIB/CHADSVASC A-FIB History Current/History of A-Fib/PAF?: No GME ATTESTATION GME ATTESTATION My faculty preceptor for this patient encounter was physically present during the encounter and was fully available. All aspects of the patient interview, examination, medical decision making process, and medical care plan development were reviewed and approved by the faculty preceptor. The faculty preceptor is aware and concurs with the plan as stated in the body of this note and will attest to such by his/her cosignature. ATTENDING NOTE I have independently interviewed and examined the patient at the bedside, and agree with the aforementioned History, physical findings and management plans as documented by my Resident Physician. The patient's questions and concerns have been satisfactorily addressed. BLANCA PEDRAZA DO Feb 13, 2020 10:52 KATHY CRUZ MD Feb 15, 2020 19:42
[2020-02-13 11:58] LABS: VENOUS BASE EXCESS -17.8 (-2.0-2.0); VENOUS HCO3 8.1 MEQ/L (23.0-27.0); VENOUS O2 SATURATION 98.9 % (60.0-80.0); VENOUS PARTIAL PRESSURE CO2 20.9 mmHg (38.0-50.0); VENOUS PARTIAL PRESSURE O2 141.9 mmHg (30.0-50.0); VENOUS PH 7.208 UNITS (7.330-7.430); VENOUS STANDARD HCO3 11.3 MEQ/L; VENOUS TOTAL CO2 8.8 MEQ/L (24.0-28.0)
[2020-02-13 12:33] LABS: BLOOD UREA NITROGEN 16 MG/DL (7-18); CARBON DIOXIDE LEVEL 11 MEQ/L (21-32); CHLORIDE LEVEL 114 MEQ/L (98-107); CREATININE FOR GFR 0.76 MG/DL (0.55-1.30); GLOMERULAR FILTRATION RATE > 60.0 (>60); GLUCOSE, FASTING 197 MG/DL (70-100); POTASSIUM SERUM 4.2 MEQ/L (3.5-5.1); SODIUM LEVEL 139 MEQ/L (136-145)
[2020-02-13 12:37] LABS: ALBUMIN 3.4 GM/DL (3.2-5.2); BILIRUBIN,DIRECT 0.1 MG/DL (0.0-0.2); BILIRUBIN,TOTAL 0.7 MG/DL (0.2-1.0); TOTAL PROTEIN 6.5 GM/DL (6.4-8.2)
[2020-02-13] MEDS ORDERED: D5W/0.9% SODIUM CHLORIDE 1,000 ML IV SCH (12:45)
--- NOTE | 2020-02-13 13:40 | REP ---
CHEST, SINGLE VIEW: There is no evidence of acute infiltrate. No pleural effusion is seen. The heart is normal in size. The mediastinal silhouette is unremarkable. The visualized osseous structures are intact. IMPRESSION: No acute pulmonary disease. Electronically Signed by Ariel Patel MD 02/13/2020 04:21 P
[2020-02-13 13:57] LABS: HEMOGLOBIN A1c 9.4 %
[2020-02-13] MEDS: HEPARIN SOD (PORCINE) 5000UNITS/ML VIAL (J1644 PER 1000UNITS) SC SCH ×2 (14:24→22:20)
[2020-02-13] MEDS ORDERED: ACETAMINOPHEN TAB 650MG DOSE (2X325MG) PO PRN (14:30)
[2020-02-13 17:31] LABS: BLOOD UREA NITROGEN 10 MG/DL (7-18); CALCIUM LEVEL 7.5 MG/DL (8.5-10.1); CARBON DIOXIDE LEVEL 14 MEQ/L (21-32); CHLORIDE LEVEL 111 MEQ/L (98-107); CREATININE FOR GFR 0.81 MG/DL (0.55-1.30); GLOMERULAR FILTRATION RATE > 60.0 (>60); GLUCOSE, FASTING 148 MG/DL (70-100); POTASSIUM SERUM 3.9 MEQ/L (3.5-5.1); SODIUM LEVEL 137 MEQ/L (136-145)
[2020-02-13] MEDS: D5W/0.45% SODIUM CHLORIDE 1,000 ML IV SCH (18:31)
[2020-02-13 23:35] LABS: BLOOD UREA NITROGEN 8 MG/DL (7-18); CALCIUM LEVEL 8.2 MG/DL (8.5-10.1); CARBON DIOXIDE LEVEL 17 MEQ/L (21-32); CHLORIDE LEVEL 112 MEQ/L (98-107); CREATININE FOR GFR 0.75 MG/DL (0.55-1.30); GLOMERULAR FILTRATION RATE > 60.0 (>60); GLUCOSE, FASTING 171 MG/DL (70-100); POTASSIUM SERUM 3.5 MEQ/L (3.5-5.1); SODIUM LEVEL 138 MEQ/L (136-145)
[2020-02-14] VITALS (7 sets, daily range): BP systolic 83–105; BP diastolic 55–65
[2020-02-14] MEDS: INSULIN IV RATE CHANGE DOCUMENTATION ML/HR XX SCH ×5 (01:26→06:24)
[2020-02-14] MEDS: D5W/0.45% SODIUM CHLORIDE 1,000 ML IV SCH (04:29)
[2020-02-14 04:36] LABS: HEMATOCRIT 33.5 % (36.0-47.0); MEAN CORPUSCULAR HEMOGLOBIN 30.3 pg (27.0-33.0); MEAN CORPUSCULAR HGB CONC 32.5 g/dl (32.0-36.5); MEAN CORPUSCULAR VOLUME 93.1 fl (80.0-96.0); WHITE BLOOD COUNT 11.3 10^3/uL (4.0-10.0)
[2020-02-14 04:45] LABS: HEMOGLOBIN 10.9 g/dl (12.0-15.5); PLATELET COUNT, AUTOMATED 315 10^3/uL (150-450)
[2020-02-14 04:53] LABS: BLOOD UREA NITROGEN 5 MG/DL (7-18); CALCIUM LEVEL 7.6 MG/DL (8.5-10.1); CARBON DIOXIDE LEVEL 20 MEQ/L (21-32); CHLORIDE LEVEL 114 MEQ/L (98-107); CREATININE FOR GFR 0.68 MG/DL (0.55-1.30); GLOMERULAR FILTRATION RATE > 60.0 (>60); GLUCOSE, FASTING 138 MG/DL (70-100); POTASSIUM SERUM 3.2 MEQ/L (3.5-5.1); SODIUM LEVEL 140 MEQ/L (136-145)
[2020-02-14] MEDS: HEPARIN SOD (PORCINE) 5000UNITS/ML VIAL (J1644 PER 1000UNITS) SC SCH ×3 (06:21→20:14)
[2020-02-14] MEDS: LEVOTHYROXINE 75MCG TABLET (0.075MG) PO SCH (06:21)
[2020-02-14] MEDS ORDERED: GLUCOSE 4GM CHEW TABLET PO PRN (07:30)
[2020-02-14] MEDS ORDERED: GLUCAGON INJ 1MG VIAL SC PRN (07:30)
[2020-02-14] MEDS ORDERED: DEXTROSE 50% 50 ML SYRINGE IV PRN (07:30)
[2020-02-14] MEDS ORDERED: LEVEMIR (INSULIN DETEMIR) 1 UNITS/0.01ML SC ONE (08:00)
[2020-02-14] MEDS: PANTOPRAZOLE 40MG VIAL (C9113 PER 1) IV SCH (08:02)
[2020-02-14] MEDS: HumaLOG INSULIN (NovoLOG) PER UNIT SC SCH ×3 (09:28→16:41)
--- NOTE | 2020-02-14 10:52 | IPNPDOC ---
Text Note Date of Service The patient was seen on 02/14/20. NOTE SUBJECTIVE: Complains of a heaviness of the chest this morning. Thinks its re lated to the severe retching and vomiting that she was having at home. Telemetry shows sinus tachy around 100 to 110. will get an EKG. Says does not have much appetite but says normally she is not a breakfast person. No abdominal pain, nausea or vomiting. PHYSICAL EXAMINATION: Vitals: (see below) General: Pale appearing female who appears stated age in mild distress, sitting up in bed. HEENT: Normocephalic, atraumatic. EOMI. No scleral icterus. Dry mucous membranes. No pharyngeal erythema or uvular deviation. Neck: No JVD, lymphadenopathy, or thyromegaly. Cardiac: RRR, Normal S1 and S2, No murmurs, gallops, rubs. Pulm: Clear to auscultation b/l. Symmetric thorax. No wheezing, crackles, rhonchi Abd: Bowel Sounds present. Abdomen is soft, minimally tender to palpation, non- distended. No guarding, rebound tenderness, or rigidity. Ext: No edema or cyanosis Neuro: No focal neuro deficits. Labs And Radiology reviewed. ASSESSMENT/PLAN: Patient is a 29 year old female presenting with chief complaint of nausea and non-bloody bilious and non-bilious vomiting for 2 days. She states she has been unable to hold down food and feels like she was in her usual state of health prior to this happening. She denies medication non-compliance, headache, dizziness, fevers, chills, chest pain, difficulty breathing, hemoptysis, dysuria, diarrhea. Admits to occasional cough productive of green sputum, epigastric abdominal pain, ongoing nausea, dry mouth. She was found to be in DKA. #. Heaviness of chest Possibly from severe retching and vomiting. will get an EKG. cardiac marker panel was negative yesterday. Will repeat one today. #. DKA most likely dietary and medication non compliance as her A1c is 9.2 now resolved will transition to levemir and lispro #. ? Type 1 DM -diabetic from the age of 19 years found during second . - Checking MITCH-65, islet cell antibodies #. Hypothyroidism -Continue home synthroid. # stress gastritis/esophagitis PPI and sucralfate. #.Hypokalemia -replaced. -DVT prophy: heparin, teds/seqs VS,Fishbone, I+O VS, Fishbone, I+O Laboratory Tests 02/13/20 11:49 02/13/20 16:49 02/13/20 22:51 02/14/20 04:23 Vital Signs Date Time Temp Pulse Resp B/P (MAP) Pulse Ox O2 Delivery O2 Flow Rate FiO2 02/14/20 08:05 97.2 94 14 98 Room Air 02/14/20 08:05 97/55 (69) I&O- Last 24 Hours up to 6 AM 02/14/20 05:59 Intake Total 4350 ml Output Total 2950 ml Balance 1400 ml CHARLY PROCTOR MD Feb 14, 2020 10:52
[2020-02-14 11:26] LABS: CK-MB VALUE MASS < 1.0 NG/ML (<3.6); CPK CREATINE PHOSPHOKINASE 32 U/L (26-192); MB/CK RELATIVE INDEX 3.12 (< OR =4); TROPONIN I < 0.02 NG/ML (< 0.10)
[2020-02-14] MEDS: INSULIN HUMAN REGULAR 100 UNITS in NS 99 ML IV SCH (11:50)
[2020-02-14] MEDS ORDERED: POTASSIUM CHLORIDE 10 MEQ SR TABLET PO ONE (12:00)
--- NOTE | 2020-02-14 12:15 | ECGEPIP ---
[facility] Test Date: 2020-02-14 Pat Name: JEAN MARIE REDMAN Department: Room: [place] [address] Gender: Female [employer] Developer: BRAYAN : 1990 Requested By: CHARLY PROCTOR Order Number: [id number] Reading MD: Juan Isbell Measurements Intervals [place] Rate: 94 P: 65 [place]: 120 QRS: 58 QRSD: 81 T: 12 QT: 344 QTc: 431 Interpretive Statements SINUS RHYTHM NONSPECIFIC T-WAVE ABNORMALITY Comparison tracing not on file Electronically Signed on 02-14-2020 12:15:39 EDT by Juan Isbell
[2020-02-14] MEDS: SUCRALFATE SUSP 1GM/10ML UD PO SCH ×3 (13:31→20:14)
[2020-02-14] MEDS ORDERED: POTASSIUM CHLORIDE 10% LIQ 20 MEQ/15 ML UDC PO ONE (14:00)
[2020-02-14] MEDS ORDERED: FLUCONAZOLE 50MG TABLET PO ONE (14:00)
[2020-02-14] MEDS ORDERED: HumaLOG INSULIN (NovoLOG) PER UNIT SC SCH (21:00)
[2020-02-15] MEDS: HEPARIN SOD (PORCINE) 5000UNITS/ML VIAL (J1644 PER 1000UNITS) SC SCH (05:51)
[2020-02-15] MEDS: LEVOTHYROXINE 75MCG TABLET (0.075MG) PO SCH (05:51)
[2020-02-15 06:00] VITALS: BP 107/72
[2020-02-15 06:35] LABS: HEMATOCRIT 32.7 % (36.0-47.0); HEMOGLOBIN 10.9 g/dl (12.0-15.5); MEAN CORPUSCULAR HEMOGLOBIN 30.6 pg (27.0-33.0); MEAN CORPUSCULAR HGB CONC 33.3 g/dl (32.0-36.5); MEAN CORPUSCULAR VOLUME 91.9 fl (80.0-96.0); PLATELET COUNT, AUTOMATED 276 10^3/uL (150-450); RED BLOOD COUNT 3.56 10^6/uL (4.00-5.40); WHITE BLOOD COUNT 7.7 10^3/uL (4.0-10.0)
[2020-02-15 07:04] LABS: BLOOD UREA NITROGEN 6 MG/DL (7-18); CALCIUM LEVEL 8.1 MG/DL (8.5-10.1); CARBON DIOXIDE LEVEL 23 MEQ/L (21-32); CHLORIDE LEVEL 108 MEQ/L (98-107); CREATININE FOR GFR 0.56 MG/DL (0.55-1.30); GLOMERULAR FILTRATION RATE > 60.0 (>60); GLUCOSE, FASTING 376 MG/DL (70-100); POTASSIUM SERUM 3.7 MEQ/L (3.5-5.1); SODIUM LEVEL 137 MEQ/L (136-145)
--- NOTE | 2020-02-15 08:06 | DS.PDOC ---
Discharge Summary General Date of Admission Feb 13, 2020 at 09:17 Date of Discharge 02/15/20 Discharge Summary PROCEDURES PERFORMED DURING STAY: [None]. DISCHARGE DIAGNOSES: DKA Diabetes ? Type I hypothyroid Stress gastritis. COMPLICATIONS/CHIEF COMPLAINT: Dka (Diabetic Ketoacidoses). HISTORY OF PRESENT ILLNESS: See History and physical HOSPITAL COURSE: Patient is a 29 year old female presenting with chief complaint of nausea and non-bloody bilious and non-bilious vomiting for 2 days. She states she has been unable to hold down food and feels like she was in her usual state of health prior to this happening. She denies medication non-compliance, headache, dizziness, fevers, chills, chest pain, difficulty breathing, hemoptysis, dysuria, diarrhea. Admits to occasional cough productive of green sputum, epigastric abdominal pain, ongoing nausea, dry mouth. She was found to be in DKA. #. Heaviness of chest Possibly from severe retching and vomiting. EKG sinus rhythm, cardiac marker panel x2 negative. #. DKA most likely dietary and medication non compliance as her A1c is 9.2 now resolved continue home meds. #. ? Type 1 DM -diabetic from the age of 19 years found during second . - Checking MITCH-65, islet cell antibodies #. Hypothyroidism -Continue home synthroid. # stress gastritis/esophagitis continue sucralfate. #.Hypokalemia -replaced. DISCHARGE MEDICATIONS: Please see below. ALLERGIES: Please see below. PHYSICAL EXAMINATION ON DISCHARGE: VITAL SIGNS: Please see below. General: Pale appearing female who appears stated age in mild distress, sitting up in bed. HEENT: Normocephalic, atraumatic. EOMI. No scleral icterus. Dry mucous membranes. No pharyngeal erythema or uvular deviation. Neck: No JVD, lymphadenopathy, or thyromegaly. Cardiac: RRR, Normal S1 and S2, No murmurs, gallops, rubs. Pulm: Clear to auscultation b/l. Symmetric thorax. No wheezing, crackles, rhonchi Abd: Bowel Sounds present. Abdomen is soft, minimally tender to palpation, non- distended. No guarding, rebound tenderness, or rigidity. Ext: No edema or cyanosis Neuro: No focal neuro deficits. LABORATORY DATA: Please see below. ACTIVITY: [As tolerated]. DIET: Consistent carb diet DISCHARGE PLAN: Home DISPOSITION: . DISCHARGE INSTRUCTIONS: Follow up PMD in 2 weeks Please follow up Insulin Antibody studies. DISCHARGE CONDITION: [Stable]. TIME SPENT ON DISCHARGE: 35 minutes. Vital Signs/I&Os Vital Signs Date Time Temp Pulse Resp B/P (MAP) Pulse Ox O2 Delivery O2 Flow Rate FiO2 02/15/20 06:00 98.9 88 18 107/72 (84) 100 Room Air I&O- Last 24 Hours up to 6 AM 02/15/20 05:59 Intake Total 1866 ml Output Total 800 ml Balance 1066 ml Laboratory Data Labs 24H Laboratory Tests 2 02/14/20 08:30: Bedside Glucose (Misc Panel) 160H 02/14/20 11:45: Bedside Glucose (Misc Panel) 54L 02/14/20 12:15: Bedside Glucose (Misc Panel) 109H 02/14/20 16:36: Bedside Glucose (Misc Panel) 87 02/14/20 17:27: Bedside Glucose (Misc Panel) 76 02/14/20 18:40: Bedside Glucose (Misc Panel) 188H 02/14/20 20:02: Bedside Glucose (Misc Panel) 352H 02/15/20 06:14: Nucleated Red Blood Cells % (auto) 0.0, Anion Gap 6L, Glomerular Filtration Rate > 60.0, Calcium Level 8.1L CBC/BMP Laboratory Tests 02/15/20 06:14 FSBS Laboratory Tests Test 02/14/20 08:30 02/14/20 11:45 02/14/20 12:15 02/14/20 16:36 Range/Units Bedside Glucose (Misc Panel) 160 54 109 87 70-105 MG/DL Test 02/14/20 17:27 02/14/20 18:40 02/14/20 20:02 Range/Units Bedside Glucose (Misc Panel) 76 188 352 70-105 MG/DL Microbiology Microbiology 02/13/20 Blood Culture - Preliminary, Resulted No growth after 24 hours . All specim... Discharge Medications Scheduled Atorvastatin Calcium (Atorvastatin Calcium) 10 Mg Tablet, 10 MG PO DAILY, (Reported) Escitalopram Oxalate (Escitalopram Oxalate) 10 Mg Tablet, 10 MG PO DAILY, (Reported) Insulin Glargine,Hum.rec.anlog (Km Marie U-100) 100 Unit/1 Ml Insuln.pen, 25 UNITS SQ QAM, (Reported) Insulin Glargine,Hum.rec.anlog (Basaglar Kwikpen U-100) 100 Unit/1 Ml Insuln.pen, 5 UNIT SC QHS, (Reported) Insulin Lispro (Humalog Kwikpen U-100) 100 Unit/1 Ml Insuln.pen, 1 DOSE SQ AC, (Reported) PER SLIDING SCALE Levothyroxine Sodium (Levothyroxine Sodium) 75 Mcg Tablet, 75 MCG PO DAILY, (Reported) Lisinopril (Lisinopril) 2.5 Mg Tablet, 2.5 MG PO DAILY, (Reported) Sucralfate (Carafate) 1 Gm Tablet, 1 GM PO DAILY, (Reported) Scheduled PRN Acetaminophen (Tylenol) 325 Mg Tablet, 650 MG PO TID PRN for PAIN / FEVER, (Reported) Allergies Coded Allergies: No Known Allergies (Unverified , 01/25/20) CHARLY PROCTOR MD Feb 15, 2020 08:06
[2020-02-15] MEDS: SUCRALFATE SUSP 1GM/10ML UD PO SCH (08:20)
[2020-02-15] MEDS: PANTOPRAZOLE 40MG VIAL (C9113 PER 1) IV SCH (08:20)
[2020-02-15] MEDS: HumaLOG INSULIN (NovoLOG) PER UNIT SC SCH (08:21)
== END 2020-02-15 09:50 | disposition home or self-care (01) | DRG 420 ==
LOC: EDBD 07:33 → M ED 07:33 → M ED INP 09:17 → ENRESERV 09:27 → M RR INP 10:08 → M MS5PR 02-14 11:37
PROVIDERS: ADMIT Internal Medicine Nephrology; ATTEND Internal Medicine Nephrology
DX: E10.10 Type 1 diabetes mellitus with ketoacidosis without coma (principal); E03.9 Hypothyroidism, unspecified; F17.210 Nicotine dependence, cigarettes, uncomplicated; K29.70 Gastritis, unspecified, without bleeding; E87.6 Hypokalemia; Z79.4 Long term (current) use of insulin; Z79.899 Other long term (current) drug therapy; Z91.14 Patient's other noncompliance with medication regimen; Z91.11 Patient's noncompliance with dietary regimen